=== PATIENT | male | born 1995 | race Caucasian/White ===

== ENCOUNTER 2016-08-09 08:50 | Emergency (ER) | payer OTHER ==
[2016-08-09] MEDS ORDERED: DEXAMETHASONE 10 MG/ML VIAL PO STA (09:45)
[2016-08-09] MEDS ORDERED: DEXAMETHASONE 10 MG/ML VIAL ONE (09:52)
[2016-08-09] MEDS ORDERED: CHERRY SYRUP 10 ML UDC PO ONE (09:52)
== END 2016-08-09 09:58 | disposition home or self-care (01) ==
DX: J45.21 Mild intermittent asthma with (acute) exacerbation (principal); H66.002 Acute suppurative otitis media without spontaneous rupture of ear drum, left ear; R03.0 Elevated blood-pressure reading, without diagnosis of hypertension
CPT/HCPCS: 99283; A9270